=== PATIENT | female | born 1970 | race American Indian/Alaskan Native ===

== ENCOUNTER 2022-07-25 14:28 | Emergency (ER) | payer OTHER, MEDICAID ==
[2022-07-25] MEDS ORDERED: Ibuprofen 600 MG Tab PO ONE (14:31)
[2022-07-25] MEDS ORDERED: Cyclobenzaprine 10 MG Tab PO ONE (14:31)
== END 2022-07-25 16:04 | disposition home or self-care (01) ==
LOC: MW.ED 14:28
DX: S09.90XA Unspecified injury of head, initial encounter (principal); M54.2 Cervicalgia; M25.551 Pain in right hip; Z79.899 Other long term (current) drug therapy; V49.50XA Passenger injured in collision with unspecified motor vehicles in traffic accident, initial encounter; Y92.410 Unspecified street and highway as the place of occurrence of the external cause
CPT/HCPCS: 70450; 72125; 73502; 99285; A9270